=== PATIENT | male | born 1970 | race Asian ===

== ENCOUNTER → 2025-06-24 | Outpatient (CLI) | payer OTHER, SELFPAY ==
--- NOTE | 2025-06-24 10:50 | XR_ITS ---
Examination: Wrist, right 3 views Technique: Wrist AP, oblique, lateral 3 views Date and time of exam: June 24, 2025 1140 hours INDICATIONS: Patient fell today with injury of the right wrist, right wrist pain. FINDINGS: No acute fracture Moderate osteoarthritis radiocarpal navicular trapezium first carpometacarpal joints No dislocation IMPRESSION: No acute fracture
== END | disposition home or self-care (01) ==
PROVIDERS: Referring Provider Physician Assistant; Visit Provider Physician Assistant
DX: S69.91XA Unspecified injury of right wrist, hand and finger(s), initial encounter (principal); W19.XXXA Unspecified fall, initial encounter
CPT/HCPCS: 73110